=== PATIENT | female | born 1930 | race Hispanic/Latino ===

== ENCOUNTER 2018-11-02 11:48 | Emergency (ER) | payer MEDICARE ==
[~2018-11-02 11:48] MED LIST: ACET-66 PO; ALEN70TA10 PO; CYAN10009 PO; CYCL30DR OU; ESOM40CA PO; HYDR-2132 PO; HYDR25TA PO; LISI40TA4 PO; METO-409 PO; RIVA10TA PO; TRIA10PO3 TP; [UNRECOGNIZED DRUG - CODE] PO
== END 2018-11-02 14:08 | disposition home or self-care (01) ==
LOC: EDH 11:48
DX: M25.542 Pain in joints of left hand (principal); I10 Essential (primary) hypertension; E11.9 Type 2 diabetes mellitus without complications; E78.00 Pure hypercholesterolemia, unspecified; E07.9 Disorder of thyroid, unspecified; Z98.890 Other specified postprocedural states
CPT/HCPCS: 29125; 73130

== ENCOUNTER 2018-12-15 14:46 | Emergency (ER) | payer MEDICARE ==
[2018-12-15 15:16] LABS: BASOPHILS % (AUTO) 0.5 % (0.0-5.0); EOSINOPHILS % (AUTO) 0.1 % (0.0-8.0); HEMATOCRIT 37.6 % (36-48); LYMPHOCYTES % (AUTO) 6.9 % (21.0-51.0); MEAN CORPUSCULAR HEMOGLOBIN 28.9 pg (27.0-33.0); MEAN CORPUSCULAR VOLUME 87.7 fL (79-99); MONOCYTES % (AUTO) 7.6 % (3.0-13.0); NEUTROPHILS % (AUTO) 84.9 % (40.0-77.0); NUCLEATED RED BLOOD CELLS 0.1 % (0.0-0.19); PLATELET COUNT (AUTO) 236 K/uL (130-400); RED BLOOD CELL COUNT(AUTO) 4.29 MIL/uL (4.00-5.50); RED CELL DISTRIBUTION WIDTH 14.4 % (11.0-15.5); WHITE BLOOD COUNT (AUTO) 8.9 K/uL (4.8-10.8)
[2018-12-15] MEDS ORDERED: CEFTRIAXONE SODIUM 2 GM VIAL IVP ONE (15:22)
[2018-12-15 15:30] LABS: CREATININE 0.7 mg/dL (0.5-1.5); POTASSIUM 3.6 mmol/L (3.5-5.1)
[2018-12-15 15:35] LABS: ALBUMIN 3.3 g/dL (3.5-5.0); BILIRUBIN,TOTAL 0.7 mg/dL (0.2-1.0); TOTAL PROTEIN, SERUM 7.1 g/dL (6.0-8.3)
[2018-12-15] MEDS ORDERED: SODIUM CHLORIDE 0.9% 1000ML 1,000 ML IV ONE (15:44)
[2018-12-15] MEDS ORDERED: ACETAMINOPHEN 325 MG TAB ONE (16:15)
[2018-12-15 17:12] LABS: APPEARANCE,URINE Clear (CLEAR); BILIRUBIN,URINE Negative (NEGATIVE); COLOR,URINE Yellow (YELLOW); GLUCOSE, URINE (UA) Negative (NEGATIVE); KETONES,URINE 15 mg/dL (NEGATIVE); LEUKOCYTE ESTERASE ,URINE Trace (NEGATIVE); NITRATE,URINE Negative (NEGATIVE); OCCULT BLOOD,URINE Negative (NEGATIVE); PROTEIN,URINE Negative (NEGATIVE)
[2018-12-15 17:20] LABS: RBC,URINE 0-1 /HPF (0-1)
[2018-12-15 17:21] LABS: BACTERIA,URINE Few /HPF (None Seen)
[2018-12-15 17:22] LABS: SQUAMOUS EPITHELIAL CELL,UR Rare /HPF (0-2)
== END 2018-12-15 19:21 | disposition home or self-care (01) ==
LOC: EDH 14:46
DX: R41.82 Altered mental status, unspecified (principal); E11.9 Type 2 diabetes mellitus without complications; E78.00 Pure hypercholesterolemia, unspecified; I10 Essential (primary) hypertension; E07.9 Disorder of thyroid, unspecified; Z90.710 Acquired absence of both cervix and uterus
CPT/HCPCS: 36415; 70450; 71045; 80053; 81001; 83605; 85025; 87040 ×2; 93005; 96361; 96374; 99285; J0696; J7030